=== PATIENT | female | born 1950 | race Caucasian/White ===

== ENCOUNTER 2022-07-23 12:45 | Emergency (ER) | payer MEDICARE ==
[~2022-07-23] VITALS: Ht 149.9 cm; Wt 54.4 kg
[2022-07-23] MEDS ORDERED: LINA72CA PO (13:17)
[2022-07-23] MEDS ORDERED: GABA600T12 PO (13:17)
[2022-07-23] MEDS ORDERED: ACYC200C31 PO (13:17)
[2022-07-23] MEDS ORDERED: HYDROCODONE PO (13:17)
[2022-07-23] MEDS ORDERED: LIDOCAINE 5% PATCH TD ONE ×2 (13:26→13:30)
--- NOTE | 2022-07-23 14:46 | NUR ---
Gave pt d/c instructions, pt verbalized understanding.
== END 2022-07-23 14:58 | disposition home or self-care (01) ==
LOC: ER 12:48
DX: G89.29 Other chronic pain (principal); M54.50 Low back pain, unspecified; Z88.0 Allergy status to penicillin; Z88.2 Allergy status to sulfonamides; M48.56XD Collapsed vertebra, not elsewhere classified, lumbar region, subsequent encounter for fracture with routine healing
CPT/HCPCS: 72110; A4663

== ENCOUNTER 2023-11-24 12:24 | Inpatient (IN) | payer MEDICARE, OTHER ==
[~2023-11-24] VITALS: Ht 152.4 cm; Wt 45.4 kg
[~2023-11-24 12:24] MED LIST: ACYC200C31 PO; GABA600T12 PO; HYDROCODONE PO; LINA72CA PO
[2023-11-24] MEDS ORDERED: ATOR20TA PO (12:57)
[2023-11-24] MEDS ORDERED: POLY250017 PO (12:57)
[2023-11-24] MEDS ORDERED: DICL100G31 TP (12:57)
[2023-11-24] MEDS ORDERED: ONDA-104 PO (12:57)
[2023-11-24] MEDS ORDERED: BACL10TA PO (12:57)
[2023-11-24] MEDS ORDERED: DULO60CA45 PO (12:57)
[2023-11-24] MEDS ORDERED: ASPI81TA31 PO (12:57)
[2023-11-24] MEDS ORDERED: PANT40TA49 PO (12:57)
[2023-11-24] MEDS ORDERED: ACET325T53 PO (12:57)
[2023-11-24] MEDS ORDERED: NALD0.2T3 PO (12:57)
[2023-11-24] MEDS ORDERED: GABA300C PO (12:57)
[2023-11-24] MEDS ORDERED: TELM40TA2 PO (12:57)
[2023-11-24] MEDS ORDERED: DOCU100C36 PO (12:57)
[2023-11-24] MEDS ORDERED: OXYC15TA2 PO (12:57)
[2023-11-24] MEDS ORDERED: METO25TA6 PO (12:57)
[2023-11-24] MEDS ORDERED: LEVE500T20 PO (12:57)
[2023-11-24] MEDS ORDERED: LIDO1ADH82 TP (12:57)
[2023-11-24 14:59] LABS: BASOPHILS % (AUTO) 0.4 % (0.0-2.0); EOSINOPHILS # (AUTO) 0.1 K/uL (0.0-0.7); EOSINOPHILS % (AUTO) 1.5 % (0.0-7.0); HEMATOCRIT 38.8 % (31.2-41.9); HEMOGLOBIN 13.1 g/dL (10.9-14.3); LYMPHOCYTES # (AUTO) 2.1 K/uL (0.8-4.8); LYMPHOCYTES % (AUTO) 25.8 % (20.5-51.5); MEAN CORPUSCULAR HEMOGLOBIN 31.1 uug (24.7-32.8); MEAN CORPUSCULAR HGB CONC 34 g/dL (32.3-35.6); MEAN CORPUSCULAR VOLUME 92.2 fL (75.5-95.3); MONOCYTES # (AUTO) 0.7 K/uL (0.1-1.30); NEUTROPHILS # (AUTO) 5.3 K/uL (1.8-8.9); NEUTROPHILS % (AUTO) 64.3 % (38.5-71.5); PLATELET COUNT (AUTO) 274 K/uL (179-408); RED BLOOD CELL COUNT(AUTO) 4.21 MIL/uL (3.63-4.92); RED CELL DISTRIBUTION WIDTH 14.3 % (12.3-17.7); WHITE BLOOD COUNT (AUTO) 8.3 K/uL (3.8-11.8)
[2023-11-24 15:03] LABS: CALCIUM 9.1 mg/dL (8.5-10.1); CARBON DIOXIDE 27 mmol/L (21-32); CHLORIDE 108 mmol/L (98-107); CREATININE 0.8 mg/dL (0.6-1.3); GLUCOSE 101 mg/dL (74-106); POTASSIUM 4.3 mmol/L (3.5-5.1); SODIUM SERUM 144 mmol/L (136-145); UREA NITROGEN, BLOOD 18 mg/dL (7-18)
[2023-11-24 15:07] LABS: AMMONIA < 10 umol/L (11-32)
[2023-11-24 15:11] LABS: ALANINE AMINOTRANSFERASE 25 U/L (14-59); ALBUMIN 2.3 g/dL (3.4-5.0); ALKALINE PHOSPHATASE 84 U/L (50-136); ASPARTATE AMINOTRANSFERASE 28 U/L (15-37); BILIRUBIN,DIRECT 0.1 mg/dL (0.0-0.2); BILIRUBIN,TOTAL 0.6 mg/dL (0.2-1.0); TOTAL PROTEIN, SERUM 5.9 g/dL (6.4-8.2)
[2023-11-24 15:11] LABS: *BILIRUBIN,URIN NEGATIVE (NEGATIVE); *BLOOD, URINE 1+ (NEGATIVE); *CLARITY,URINE SLIGHTLY CLOUDY (CLEAR); *COLOR,URINE YELLOW (YELLOW); *KETONES,URINE NEGATIVE (NEGATIVE); *PROTEIN,URINE 2+ (NEGATIVE); *UROBILINOGEN,URINE 0.2 E.U./dl (NORMAL); LEUKOCYTE ESTERASE ,URINE TRACE (NEGATIVE); NITRITE, URINE POSITIVE (NEGATIVE); UGLUCOSE NEGATIVE (NEGATIVE)
[2023-11-24 15:21] LABS: BACTERIA,URINE MANY /HPF (NONE SEEN); SQUAMOUS EPITHELIAL CELL,UR FEW /HPF (NONE SEEN)
[2023-11-24 15:33] LABS: THYROID STIMULATING HORMONE 0.557 mIU/mL (0.358-3.740)
[2023-11-24 15:36] LABS: MAGNESIUM 2.3 mg/dL (1.8-2.4)
[2023-11-24] MEDS: CEFTRIAXONE 1 G in IV DEXTROSE 5% 50 ML IV ONE (18:25)
[2023-11-24] MEDS ORDERED: CEFTRIAXONE /D5W 50ML IVPB **ER PYXIS IV ONE (18:25)
[2023-11-24] MEDS ORDERED: REMEDY ESSENTIAL ZINC PASTE 113 GM TP PRN (19:30)
[2023-11-24] MEDS ORDERED: ACETAMINOPHEN 325 MG TABLET PO PRN (19:30)
[2023-11-24] MEDS ORDERED: MAGNESIUM HYDROXIDE 30 ML LIQUID UDC PO PRN (19:30)
[2023-11-24 21:00] VITALS: BP 140/80; TEMP 98; O2SAT 95
[2023-11-24] MEDS: ENOXAPARIN SODIUM 40 MG/0.4 ML DISP.SYRIN SQ SCH (21:06)
[2023-11-24] MEDS: IV 1/2NS 1000 ML 1,000 ML IV PRN (21:33)
[2023-11-25] VITALS: BP 147/74; TEMP 98.4; O2SAT 96
[2023-11-25] MEDS: HYDROCODONE/APAP 10-325 MG TABLET PO PRN (03:04)
[2023-11-25 04:30] VITALS: BP 145/77; TEMP 98; O2SAT 95
[2023-11-25] MEDS: PANTOPRAZOLE SODIUM 40 MG TABLET.DR PO SCH (06:31)
[2023-11-25 06:55] LABS: BASOPHILS % (AUTO) 0.3 % (0.0-2.0); EOSINOPHILS # (AUTO) 0.2 K/uL (0.0-0.7); EOSINOPHILS % (AUTO) 2.1 % (0.0-7.0); HEMATOCRIT 36.7 % (31.2-41.9); HEMOGLOBIN 12.5 g/dL (10.9-14.3); LYMPHOCYTES # (AUTO) 2.4 K/uL (0.8-4.8); LYMPHOCYTES % (AUTO) 31.3 % (20.5-51.5); MEAN CORPUSCULAR HEMOGLOBIN 31.4 uug (24.7-32.8); MEAN CORPUSCULAR HGB CONC 34 g/dL (32.3-35.6); MEAN CORPUSCULAR VOLUME 92.3 fL (75.5-95.3); MONOCYTES # (AUTO) 0.5 K/uL (0.1-1.30); MONOCYTES % (AUTO) 6.5 % (0.0-11.0); NEUTROPHILS # (AUTO) 4.5 K/uL (1.8-8.9); NEUTROPHILS % (AUTO) 59.8 % (38.5-71.5); PLATELET COUNT (AUTO) 233 K/uL (179-408); RED BLOOD CELL COUNT(AUTO) 3.98 MIL/uL (3.63-4.92); RED CELL DISTRIBUTION WIDTH 13.7 % (12.3-17.7); WHITE BLOOD COUNT (AUTO) 7.6 K/uL (3.8-11.8)
[2023-11-25 07:07] LABS: CALCIUM 8.5 mg/dL (8.5-10.1); CARBON DIOXIDE 27 mmol/L (21-32); CHLORIDE 106 mmol/L (98-107); CREATININE 0.6 mg/dL (0.6-1.3); GLUCOSE 94 mg/dL (74-106); MAGNESIUM 1.8 mg/dL (1.8-2.4); PHOSPHOROUS 3.2 mg/dL (2.5-4.9); POTASSIUM 3.6 mmol/L (3.5-5.1); SODIUM SERUM 141 mmol/L (136-145); UREA NITROGEN, BLOOD 13 mg/dL (7-18)
[2023-11-25 07:11] LABS: DIFFERENTIAL COMMENT 1
[2023-11-25] MEDS ORDERED: LIDOCAINE 5% PATCH TD SCH (11:15)
[2023-11-25] MEDS ORDERED: ACYCLOVIR 200 MG CAPSULE PO SCH (11:15)
[2023-11-25] MEDS ORDERED: DOCUSATE SODIUM 100 MG CAPSULE PO PRN (11:15)
[2023-11-25 11:31] VITALS: BP 170/102; TEMP 98.7; O2SAT 97
[2023-11-25] MEDS: ASPIRIN 81 MG TAB.CHEW PO SCH (12:07)
[2023-11-25] MEDS: DULOXETINE 60 MG CAPSULE.DR PO SCH (12:08)
[2023-11-25] MEDS: levETIRAcetam 500 MG TABLET PO SCH (12:08)
[2023-11-25] MEDS: METOPROLOL TARTRATE 25 MG TABLET PO SCH (12:08)
[2023-11-25] MEDS: LOSARTAN POTASSIUM 25 MG TABLET PO SCH (12:08)
[2023-11-25] MEDS: GABAPENTIN 300 MG CAPSULE PO SCH (12:34)
[2023-11-25] MEDS: OLANZAPINE 10 MG VIAL IM ONE (12:35)
[2023-11-25] MEDS: BACLOFEN 10 MG TABLET PO SCH (12:55)
[2023-11-25] MEDS ORDERED: BACLOFEN 10 MG TABLET PO SCH (13:00)
[2023-11-25] MEDS: LIDOCAINE 5% PATCH TD SCH (15:42)
[2023-11-25 15:50] VITALS: BP 139/58; TEMP 98.2; O2SAT 97
[2023-11-25] MEDS: CEFTRIAXONE 1 G in IV DEXTROSE 5% 50 ML IV SCH (17:12)
[2023-11-25 19:45] VITALS: BP 156/68; TEMP 98.3; O2SAT 95
[2023-11-25] MEDS: ATORVASTATIN 20 MG TABLET PO SCH (20:22)
[2023-11-26 00:05] VITALS: BP 133/59; TEMP 98.1; O2SAT 95
[2023-11-26 04:00] VITALS: BP 137/58; TEMP 98.3; O2SAT 95
[2023-11-26 07:01] LABS: BASOPHILS % (AUTO) 0.4 % (0.0-2.0); EOSINOPHILS # (AUTO) 0.1 K/uL (0.0-0.7); EOSINOPHILS % (AUTO) 1.9 % (0.0-7.0); HEMATOCRIT 36.3 % (31.2-41.9); HEMOGLOBIN 12.5 g/dL (10.9-14.3); LYMPHOCYTES # (AUTO) 0.9 K/uL (0.8-4.8); LYMPHOCYTES % (AUTO) 13.3 % (20.5-51.5); MEAN CORPUSCULAR HEMOGLOBIN 31.4 uug (24.7-32.8); MEAN CORPUSCULAR HGB CONC 34 g/dL (32.3-35.6); MEAN CORPUSCULAR VOLUME 91.2 fL (75.5-95.3); MONOCYTES # (AUTO) 0.5 K/uL (0.1-1.30); MONOCYTES % (AUTO) 7.3 % (0.0-11.0); NEUTROPHILS % (AUTO) 77.1 % (38.5-71.5); PLATELET COUNT (AUTO) 226 K/uL (179-408); RED BLOOD CELL COUNT(AUTO) 3.98 MIL/uL (3.63-4.92); RED CELL DISTRIBUTION WIDTH 14.1 % (12.3-17.7); WHITE BLOOD COUNT (AUTO) 6.5 K/uL (3.8-11.8)
[2023-11-26 07:12] LABS: CALCIUM 8.3 mg/dL (8.5-10.1); CREATININE 0.7 mg/dL (0.6-1.3); PHOSPHOROUS 3.8 mg/dL (2.5-4.9); POTASSIUM 3.7 mmol/L (3.5-5.1)
[2023-11-26 07:14] LABS: DIFFERENTIAL COMMENT 1
[2023-11-26] MEDS: LOSARTAN POTASSIUM 50 MG TABLET PO SCH (09:11)
[2023-11-26 11:31] VITALS: BP 138/65; TEMP 98.8; O2SAT 93
[2023-11-26 15:41] VITALS: BP 164/98; TEMP 99.1; O2SAT 98
[2023-11-26] MEDS: LOSARTAN POTASSIUM 50 MG TABLET PO ONE (16:49)
[2023-11-26 20:00] VITALS: BP 186/88; TEMP 100.9; O2SAT 91
[2023-11-26] MEDS: ONDANSETRON 4 MG/2 ML VIAL IV PRN (20:02)
[2023-11-26 23:51] VITALS: BP 155/73; TEMP 98.8; O2SAT 94
[2023-11-27] VITALS (8 sets, daily range): BP systolic 122–175; BP diastolic 42–82; TEMP 97–98.4; O2SAT 88–99
[2023-11-27] MEDS: LOSARTAN POTASSIUM 50 MG TABLET PO SCH (09:15)
[2023-11-27] MEDS: ALBUTEROL SULFATE 2.5 MG/3 ML NEBU NEB PRN (16:27)
[2023-11-27] MEDS: AMLODIPINE 5 MG TABLET PO SCH (20:24)
[2023-11-27] MEDS: REMEDY ESSENTIAL ZINC PASTE 113 GM TP SCH (20:26)
[2023-11-27] MEDS ORDERED: METOPROLOL TARTRATE 25 MG TABLET PO SCH (21:00)
[2023-11-28] VITALS (11 sets, daily range): BP systolic 101–170; BP diastolic 47–78; TEMP 97.8–98.4; O2SAT 90–97
[2023-11-28 07:49] LABS: BASOPHILS % (AUTO) 0.4 % (0.0-2.0); DIFFERENTIAL COMMENT 1; EOSINOPHILS % (AUTO) 0.3 % (0.0-7.0); HEMATOCRIT 36.9 % (31.2-41.9); HEMOGLOBIN 12.6 g/dL (10.9-14.3); LYMPHOCYTES # (AUTO) 1.4 K/uL (0.8-4.8); LYMPHOCYTES % (AUTO) 19.9 % (20.5-51.5); MEAN CORPUSCULAR HGB CONC 34 g/dL (32.3-35.6); MEAN CORPUSCULAR VOLUME 90.8 fL (75.5-95.3); MONOCYTES # (AUTO) 0.9 K/uL (0.1-1.30); MONOCYTES % (AUTO) 12.2 % (0.0-11.0); NEUTROPHILS # (AUTO) 4.8 K/uL (1.8-8.9); NEUTROPHILS % (AUTO) 67.2 % (38.5-71.5); PLATELET COUNT (AUTO) 203 K/uL (179-408); RED BLOOD CELL COUNT(AUTO) 4.06 MIL/uL (3.63-4.92); RED CELL DISTRIBUTION WIDTH 14.2 % (12.3-17.7); WHITE BLOOD COUNT (AUTO) 7.1 K/uL (3.8-11.8)
[2023-11-28 08:29] LABS: CALCIUM 8.6 mg/dL (8.5-10.1); CARBON DIOXIDE 28 mmol/L (21-32); CHLORIDE 110 mmol/L (98-107); CREATININE 0.6 mg/dL (0.6-1.3); GLUCOSE 97 mg/dL (74-106); NT-PRO BNP 625 pg/mL (0-125); PHOSPHOROUS 4.8 mg/dL (2.5-4.9); POTASSIUM 3.4 mmol/L (3.5-5.1); SODIUM SERUM 143 mmol/L (136-145); UREA NITROGEN, BLOOD 15 mg/dL (7-18)
[2023-11-28] MEDS: ENSURE ENLIVE (VAN) 240 ML LIQUID PO SCH (08:31)
[2023-11-28] MEDS ORDERED: LOSARTAN POTASSIUM 50 MG TABLET PO SCH (09:00)
[2023-11-28] MEDS: POTASSIUM CHLORIDE 20 MEQ TAB.PRT.SR PO ONE (09:35)
[2023-11-28] MEDS: hydrALAZINE HCL 25 MG TABLET PO PRN (12:15)
[2023-11-28] MEDS: METOPROLOL TARTRATE 25 MG TABLET PO SCH (13:17)
[2023-11-28] MEDS ORDERED: NITR100C11 PO (14:04)
[2023-11-28] MEDS ORDERED: PANT40TA49 PO (14:04)
[2023-11-28] MEDS ORDERED: METO25TA6 PO (14:04)
[2023-11-28] MEDS ORDERED: AMLO-212 PO (14:04)
[2023-11-28] MEDS: DEXAMETHASONE SOD PHOSPHATE 4 MG INJ IV SCH (20:15)
[2023-11-28] MEDS ORDERED: AZITHROMYCIN 500MG/ D5W 250ML IVPB **ER PYXIS ONLY IV ONE (20:19)
[2023-11-28] MEDS: AZITHROMYCIN IV 500 MG in IV DEXTROSE 5% 250 ML IV SCH (20:27)
[2023-11-28] MEDS: levoFLOXacin 500 MG TABLET PO SCH (21:44)
[2023-11-29 06:00] VITALS: BP_SYST 61; TEMP 98; O2SAT 94
[2023-11-29 07:50] LABS: ALANINE AMINOTRANSFERASE 26 U/L (14-59); ALKALINE PHOSPHATASE 83 U/L (50-136); ASPARTATE AMINOTRANSFERASE 20 U/L (15-37); BILIRUBIN,TOTAL 0.3 mg/dL (0.2-1.0); CALCIUM 8.6 mg/dL (8.5-10.1); CARBON DIOXIDE 26 mmol/L (21-32); CHLORIDE 110 mmol/L (98-107); CREATININE 0.9 mg/dL (0.6-1.3); GLUCOSE 122 mg/dL (74-106); LACTATE DEHYDROGENASE 180 U/L (81-234); MAGNESIUM 2.2 mg/dL (1.8-2.4); POTASSIUM 4.7 mmol/L (3.5-5.1); SODIUM SERUM 141 mmol/L (136-145); TOTAL PROTEIN, SERUM 6.1 g/dL (6.4-8.2); UREA NITROGEN, BLOOD 25 mg/dL (7-18)
[2023-11-29 08:10] LABS: BASOPHILS % (AUTO) 0.1 % (0.0-2.0); HEMATOCRIT 38.4 % (31.2-41.9); HEMOGLOBIN 12.8 g/dL (10.9-14.3); LYMPHOCYTES # (AUTO) 1.3 K/uL (0.8-4.8); LYMPHOCYTES % (AUTO) 20.9 % (20.5-51.5); MEAN CORPUSCULAR HEMOGLOBIN 30.7 uug (24.7-32.8); MEAN CORPUSCULAR HGB CONC 33 g/dL (32.3-35.6); MEAN CORPUSCULAR VOLUME 91.9 fL (75.5-95.3); MONOCYTES # (AUTO) 0.3 K/uL (0.1-1.30); MONOCYTES % (AUTO) 5.2 % (0.0-11.0); NEUTROPHILS # (AUTO) 4.7 K/uL (1.8-8.9); NEUTROPHILS % (AUTO) 73.8 % (38.5-71.5); PLATELET COUNT (AUTO) 211 K/uL (179-408); RED BLOOD CELL COUNT(AUTO) 4.18 MIL/uL (3.63-4.92); WHITE BLOOD COUNT (AUTO) 6.3 K/uL (3.8-11.8)
[2023-11-29 08:13] LABS: DIFFERENTIAL COMMENT 1
[2023-11-29 11:29] VITALS: BP 154/68; TEMP 98.3; O2SAT 95
[2023-11-29 16:11] VITALS: BP 150/72; TEMP 98.6; O2SAT 96
[2023-11-29 16:33] VITALS: O2SAT 98
[2023-11-29] MEDS ORDERED: DEXA4TAB68 PO (17:38)
[2023-11-29] MEDS ORDERED: ACET325T53 PO (17:38)
[2023-11-29] MEDS ORDERED: ALBU2.5V7 NEB (17:38)
[2023-11-29] MEDS ORDERED: HYDR-894 PO (17:38)
[2023-11-29] MEDS ORDERED: LEVO500T90 PO (17:38)
[2023-11-29] MEDS ORDERED: Lactose-Free Food PO (17:38)
== END 2023-11-29 18:45 | DRG 689 ==
LOC: ER 12:27 → MEDSURG3 20:14 → TELE3 20:44 → MEDSURG3 11-26 10:00 → TELE3 11-27 17:15 → MEDSURG3 11-28 10:11
PROVIDERS: ATTEND Internal Medicine
DX: N39.0 Urinary tract infection, site not specified (principal); E43 Unspecified severe protein-calorie malnutrition; G92.8 Other toxic encephalopathy; U07.1 COVID-19; J12.82 Pneumonia due to coronavirus disease 2019; D68.59 Other primary thrombophilia; Z68.1 Body mass index [BMI] 19.9 or less, adult; B96.4 Proteus (mirabilis) (morganii) as the cause of diseases classified elsewhere; E78.5 Hyperlipidemia, unspecified; G40.909 Epilepsy, unspecified, not intractable, without status epilepticus; G89.4 Chronic pain syndrome; I10 Essential (primary) hypertension; I25.10 Atherosclerotic heart disease of native coronary artery without angina pectoris; K21.9 Gastro-esophageal reflux disease without esophagitis; Z79.899 Other long term (current) drug therapy; Z79.82 Long term (current) use of aspirin; Z88.2 Allergy status to sulfonamides; Z88.0 Allergy status to penicillin; J45.909 Unspecified asthma, uncomplicated; M19.90 Unspecified osteoarthritis, unspecified site; E88.09 Other disorders of plasma-protein metabolism, not elsewhere classified; F03.90 Unspecified dementia, unspecified severity, without behavioral disturbance, psychotic disturbance, mood disturbance, and anxiety; Z79.891 Long term (current) use of opiate analgesic; Z74.09 Other reduced mobility
CPT/HCPCS: 36415; 70450; 71045; 83615; 83735; 84100; 84443; 84484; 85025; 86140; 93005; 94664; C1758; G0378; J0456; J0696; J1100; J1650; J2358; J2405; J7050